=== PATIENT | male | born 1965 | race Caucasian/White ===

== ENCOUNTER 2021-05-28 10:00 | Emergency (ER) | payer OTHER ==
[~2021-05-28] VITALS: Ht 182.9 cm; Wt 90.9 kg
[2021-05-28] MEDS ORDERED: PROPARACAINE HCL 0.5% 15 ML OPHTHALMIC SOLUTION OD ONE (11:00)
[2021-05-28] MEDS ORDERED: FLUORESCEIN SODIUM 1 MG STRIP OU ONE (11:00)
[2021-05-28 13:00] VITALS: BP 138/90
[2021-05-28] MEDS ORDERED: OFLO35OS OS (13:06)
[2021-05-28] MEDS ORDERED: KETOROLAC TROMETHAMINE 10 MG TABLET PO ONE (13:15)
== END 2021-05-28 13:30 | disposition home or self-care (01) ==
LOC: EMS 10:04
DX: T15.02XA Foreign body in cornea, left eye, initial encounter (principal); X58.XXXA Exposure to other specified factors, initial encounter; Y93.89 Activity, other specified; Y92.89 Other specified places as the place of occurrence of the external cause; Y99.8 Other external cause status
CPT/HCPCS: 65222; 99173; 99284; Z7502; Z7610